=== PATIENT | female | born 1980 | race African-American/Black ===

== ENCOUNTER 2018-02-27 13:07 | Emergency (ER) | payer OTHER ==
[2018-02-27 16:26] VITALS: BP 120/48
[2018-02-27] MEDS ORDERED: NORCO 5/325 PO ONE (16:53)
--- NOTE | 2018-02-27 16:58 | Emergency Department Report ---
HPI - General Chief Complaint: Headache Time Seen by Provider: 02/27/18 16:41 - HPI HPI: Rodrigues 27 The patient is a 37-year-old female presented with a chief complaint of headache back pain and leg pain. The patient states she's had intermittent left parietal and occipital headache for the past 3 months. Patient states she has not seen a physician about her pain as of yet. Patient denies any receding trauma states that she has intermittent tightness in the left parietal region. Patient denies fever, nausea or vomiting. The patient states for the past 1-2 months she's had constant pain of the left knee/lower extremity. Patient gives her pain is score of 6-7/10 Location: [See above] Duration: [See above] Quality: Tightness Severity:6-7/10 Modifying factors: [see above] Context: [see above] Mode of transportation: [not driving] ED Past Medical Hx - Past Medical History Previous Medical History?: Yes Additional medical history: Back pain and left leg pain - Surgical History Past Surgical History?: Yes Hx Appendectomy: Yes - Family History Family history: no significant - Social History Smoking Status: Never Smoker Substance Use Type: None (denies illicit drug use) - Medications Home Medications: Home Medications Medication Instructions Recorded Confirmed Last Taken Type Ibuprofen [Motrin] 600 mg PO Q8H PRN #14 tablet 06/07/13 06/25/14 Unknown Rx Psyllium Husk/Aspartame [Metamucil 3.4 gm PO DAILY #1 powd.pack 06/07/13 Unknown Rx Fiber Singles Packet] HYDROcodone/APAP 5-325 [[place] 1 each PO Q6HR PRN #20 tablet 06/30/14 Unknown Rx 5/325] Levofloxacin [Levaquin] 500 mg PO QDAY #3 tablet 06/30/14 Unknown Rx metroNIDAZOLE [Flagyl] 500 mg PO Q8HR #9 tablet 06/30/14 Unknown Rx Butalb/Acetamin/Caff 50-325-40 2 tab PO Q8HR PRN #20 tablet 02/27/18 Unknown Rx [Fioricet] ED Review of Systems ROS: Stated complaint: HEADACHE, BACK AND LEFT LEG PAIN Other details as noted in HPI Constitutional: denies: fever Eyes: denies: eye pain ENT: denies: throat pain Cardiovascular: denies: chest pain Gastrointestinal: denies: abdominal pain, nausea, vomiting Genitourinary: denies: dysuria Musculoskeletal: back pain, myalgia Neurological: headache Physical Exam - Physical Exam Vital Signs: Vital Signs 02/27/18 02/27/18 15:03 16:24 Temperature 98.1 F 97.7 F Pulse Rate 79 68 Respiratory 18 16 Rate Blood Pressure 113/64 Blood Pressure 120/48 [Left] O2 Sat by Pulse 97 100 Oximetry Physical Exam: GENERAL: The patient is well-developed well-nourished female lying on stretcher not appearing to be in acute distress. [] HEENT: Normocephalic. Atraumatic. Extraocular motions are intact. Patient has moist mucous membranes. NECK: Supple. No meningitic signs are noted. Trachea midline CHEST/LUNGS: Clear to auscultation. There is no respiratory distress noted. HEART/CARDIOVASCULAR: Regular. There is no tachycardia. There is no gallop rub or murmur. ABDOMEN: Abdomen is soft, nontender. Patient has normal bowel sounds. There is no abdominal distention. SKIN: There is no rash. There is no edema. There is no diaphoresis. NEURO: The patient is awake, alert, and oriented. The patient is cooperative. The patient has no focal neurologic deficits. The patient has normal speech. Cranial nerves II through XII grossly intact, no drift, roll carrier is 5+/5 bilaterally MUSCULOSKELETAL: There is no tenderness to palpation of the left knee. There is no pain with axial loading of the left knee. There is no pain of the left knee with varus and valgus stress. Patient does complain of some discomfort to palpation of the left calf. There is no limitation range of motion. There is no evidence of acute injury. ED Course Vital Signs 02/27/18 02/27/18 15:03 16:24 Temperature 98.1 F 97.7 F Pulse Rate 79 68 Respiratory 18 16 Rate Blood Pressure 113/64 Blood Pressure 120/48 [Left] O2 Sat by Pulse 97 100 Oximetry ED Medical Decision Making - Radiology Data Radiology results: report reviewed (left lower extremity Doppler) RADHA HERRERA [facility] Female : 1980 MedRec# [id number] 02/27/18 17:57 - Radiology Dept. Note by ROSELYN ANDRES Acct Num: [id number] : 1980 Patient Age: 37 LLE VENOUS DUPLEX COMPLETED. VAS LAB PRELIMINARY REPORT; NO EVIDENCE OF DVT/SVT NOTED IN VESSELS/SEGMENTS EXAMINED. PHYSICIANS REPORT TO FOLLOW...(ELÍASK) Initialized on 02/27/18 17:57 - END OF NOTE CT head (read by radiologist)- No CT evidence of an acute intracranial process - Differential Diagnosis migraines, headache, tension headache, intracranial mass, DVT, arthralgia Critical care attestation.: If time is entered above; I have spent that time in minutes in the direct care of this critically ill patient, excluding procedure time. ED Disposition Clinical Impression: Headache, Arthralgia of left knee Disposition: DC- TO HOME OR SELFCARE Is pt being admited?: No Does the pt Need Aspirin: No Condition: Stable Instructions: Arthralgia (ED), Acute Headache (ED) Additional Instructions: Return to the emergency department immediately should you develop worsening symptoms, fever, inability to tolerate food or liquid or any other concerns. Prescriptions: Butalb/Acetamin/Caff 50-325-40 [Fioricet] 2 tab PO Q8HR PRN #20 tablet PRN Reason: Headache Referrals: PRIMARY CARE, [Primary Care Provider] - 3-5 Days Time of Disposition: 18:32
--- NOTE | 2018-02-27 18:26 | Cat Scan Report ---
FINAL REPORT PROCEDURE: CT HEAD/BRAIN WO CON TECHNIQUE: Computerized tomography of the head was performed without contrast material. HISTORY: headache ?3 months COMPARISON: No prior studies are available for comparison. FINDINGS: There is no CT evidence of intracranial mass, hemorrhage, acute territorial infarction, or hydrocephalus. The intracranial arteries are symmetric in density. Calvarium is intact. There is minimal opacification of the posterior left ethmoid sinus. Otherwise visualized paranasal sinuses and mastoids are aerated. IMPRESSION: Minimal opacification of the posterior left ethmoid sinus. No CT evidence of acute intracranial abnormality
== END 2018-02-27 18:46 | disposition home or self-care (01) ==
LOC: ED 13:07
DX: R51 Headache (principal); M25.562 Pain in left knee; M54.9 Dorsalgia, unspecified
CPT/HCPCS: 36415; 70450; 84703; 99284